=== PATIENT | male | born 1940 | race Native Hawaiian/Other Pacific Islander ===

== ENCOUNTER 2017-03-11 16:24 | Emergency (ER) | payer MEDICARE, MEDICAID ==
[2017-03-11 16:37] VITALS: TEMP 98.8; BMI 29.2
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
[2017-03-11 18:41] VITALS: BP 132/78; PULSE 86; RESP 18; O2SAT 98
--- NOTE | 2017-03-12 09:45 | RAD ---
PROCEDURE: Cervical Spine Radiographs. HISTORY: Pain. COMPARISON: None. FINDINGS: BONES: Alignment maintained. No fracture. Dens Intact. DISC SPACES: Normal. SOFT TISSUES: Normal. No prevertebral soft tissue swelling. OTHER FINDINGS: None. IMPRESSION: Normal cervical spine radiographs
== END 2017-03-11 18:42 | disposition home or self-care (01) ==
LOC: ED 16:24
DX: M54.9 Dorsalgia, unspecified (principal); S13.4XXA Sprain of ligaments of cervical spine, initial encounter; V49.59XA Passenger injured in collision with other motor vehicles in traffic accident, initial encounter; Y92.410 Unspecified street and highway as the place of occurrence of the external cause